=== PATIENT | female | born 1970 | race Caucasian/White ===

== ENCOUNTER 2016-04-25 13:03 | Day surgery (SDC) | payer BC ==
[2016-04-25] MEDS ORDERED: FENTANYL PF 100MCG/2ML VIAL IV ONE (14:00)
[2016-04-25] MEDS ORDERED: PROPOFOL 10 MG/ML VIAL IV ONE (14:00)
--- NOTE | 2016-04-26 08:40 | Operative Note ---
DATE OF SURGERY: OPERATION: ESOPHAGOGASTRODUODENOSCOPY. PREOPERATIVE DIAGNOSIS: Noncardiac chest pain. POSTOPERATIVE DIAGNOSIS: Normal EGD. PROCEDURE: After informed consent was obtained from the patient, she was placed in the left lateral decubitus position in the endoscopy suite, sedated and monitored by the department of anesthesia. Once sedated, a well-lubricated [id number] gastroscope was placed in the posterior oropharynx and under direct visualization passed to the proximal esophagus. The endoscope was advanced through the proximal, mid, and distal esophagus. The GE junction and esophagus were unremarkable. No ulcers, erosions, strictures, varices, or mass lesions were seen. There were no changes suggestive of eosinophilic esophagitis. The gastric body demonstrated normal distensibility and normal rugal folds. The body and the antrum as well as the pylorus, duodenal bulb, and sweep were unrevealing. J-turn views of the proximal stomach were unremarkable. The endoscope was straightened and the duodenal bulb and sweep were again inspected, as was the antrum, gastric body, and esophagus. These were examined in retrograde fashion at this point and were all unremarkable. RECOMMENDATIONS: I would suggest a 2-week trial of a PPI to assess for improvement of her noncardiac chest pain. At this point there does not appear to be any significant acid damage; however, nonerosive reflux disease may be present and triggering her symptoms. There may also be a stress factor. I would suggest monitoring her response to a PPI. If her symptoms improve, no further interventions. However, should she have persistent symptoms, further investigation may be warranted. As always, thank you for allowing me to participate in the healthcare of your patients. Michael Schmidt DO CC: Dr. Ashley GAMBLE
== END 2016-04-25 15:00 | disposition home or self-care (01) ==
LOC: HOP 13:03
PROVIDERS: ATTEND Internal Medicine Gastroenterology
DX: R07.89 Other chest pain (principal)
CPT/HCPCS: 81025; 43235; 00740; J3010

== ENCOUNTER 2018-03-18 20:20 | Emergency (ER) | payer BC ==
[2018-03-18] MEDS ORDERED: METHYLPREDNISOLONE PF 125MG/VIAL IVP ONE (20:28)
[2018-03-18] MEDS ORDERED: ONDANSETRON HCL IV 4 MG/2 ML VIAL IVP ONE (20:28)
[2018-03-18] MEDS ORDERED: 0.9 % SODIUM CHLORIDE 1000ML 1,000 ML IV SCH (20:30)
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
[2018-03-18 20:43] LABS: BASO % 0.2 % (0-6); EOS % 1.9 % (0-6); GRAN % 61.1 % (47-80); HEMATOCRIT 45.2 % (35.0-47.0); HEMOGLOBIN 15.2 gm/dl (11.6-16.0); LYMPH % 30.9 % (16-45); MEAN CELL VOLUME 99.6 fl (81-97); MEAN CORPUSCULAR HEMOGLOBIN 33.5 pg (27-33); MEAN CORPUSCULAR HGB CONC 33.6 g/dl (32-36); MEAN PLATELET VOLUME 10.6 fl (7.4-10.4); MONO % 5.9 % (0-9); PLATELET COUNT 235 K/uL (130-400); RED BLOOD COUNT 4.54 M/uL (3.80-5.40); RED CELL DISTRIBUTION WIDTH 12.2 % (11.5-14.5)
[2018-03-18 20:51] LABS: BLOOD UREA NITROGEN 21 mg/dL (6-20); CREATININE 0.9 mg/dL (0.5-0.9); EST GLOMERULAR FILTRATION RATE > 60 mL/min
[2018-03-18 20:54] LABS: GLUCOSE,RANDOM 115 mg/dL (74-109)
[2018-03-18 20:57] LABS: ALB/GLOB RATIO 1.6 (1.1-1.8); ALBUMIN 4.9 g/dL (4.0-5.0); ALKALINE PHOSPHATASE 62 U/L (35-104); ALT/SGPT 10 U/L (<33); AST/SGOT 14 U/L (10.0-35.0)
--- NOTE | 2018-03-20 10:27 | RADIOLOGY REPORT ---
EXAM: CHEST, TWO VIEWS HISTORY: DIFFICULTY IN BREATHING. TECHNIQUE: Frontal and lateral views of the chest were performed. FINDINGS: The heart size is normal. No pulmonary vascular congestion. No infiltrate or pleural effusion. IMPRESSION: NO ACUTE DISEASE PROCESS. JOB NUMBER: [id number] MTDD
== END 2018-03-18 21:42 | disposition home or self-care (01) ==
LOC: ER 20:20
DX: T59.811A Toxic effect of smoke, accidental (unintentional), initial encounter (principal); J98.9 Respiratory disorder, unspecified; R05 Cough; R11.2 Nausea with vomiting, unspecified; R07.89 Other chest pain; Y92.000 Kitchen of unspecified non-institutional (private) residence as the place of occurrence of the external cause
CPT/HCPCS: 99284 ×2; 96374; 96375; 85025; 82375; 80053; 71046; 93005; 93010; J2405; J2930; J7030